=== PATIENT | female | born 1970 | race Caucasian/White ===

== ENCOUNTER 2022-04-07 03:40 | Emergency (ER) | payer MEDICARE, MEDICAID, SELFPAY ==
--- NOTE | ~2022-04-07 | CT_ITS ---
EXAMINATION: CT abdomen pelvis wo con DATE: 04/07/2022 05:06 INDICATION: Lower abdominal pain and cramping, diarrhea for 2 days. Vaginal discharge. TECHNIQUE: Computed tomography (CT) of the abdomen and pelvis was performed without intravenous contr ast. Automated exposure control and iterative reconstruction technique were employed. Exam dose: 885 .79 mGy-cm total exam DLP. COMPARISON: None. FINDINGS: 7 mm irregular left lower lobe opacity (series 4 image 9). CT thorax examination is recomme nded. Normal heart size. No pericardial or pleural effusion. 8 mm lateral segment left hepatic cyst. No other hepatic space-occupying mass lesion is evident. Norm al splenic size. No pancreatic mass lesion, calcification or ductal dilatation is noted. The gallbladder is contracted. No bile duct or pancreatic duct dilatation is noted. Normal morphology of the adrenal glands. No renal mass lesion or urinary tract calculus or hydrourete ronephrosis. Normal caliber of the abdominal aorta. No intraperitoneal or retroperitoneal or pelvic mass lesion or adenopathy or ascites. Normal appendix. No bowel obstruction or intraperitoneal free air. The urinary bladder, uterus and adnexal areas are unremarkable. Small fat-containing umbilical hernia. No suspicious osteolytic or osteoblastic lesions. IMPRESSION: 8 mm left hepatic cyst 7 mm irregular left lower lobe pulmonary opacity, carcinoma the lung is not excluded; CT thorax is re commended. Dr. Ross notified emergency room physician Dr. Roman of the left lower lobe opacity and recommendation for CT thorax on 04/03/2022 at 1045 hours. Reviewed, dictated and finalized at [facility] Reviewed, dictated and finalized at [facility] [employer] [employer] IMPRESSION: 8 mm left hepatic cyst 7 mm irregular left lower lobe pulmonary opacity, carcinoma the lung is not exc luded; CT thorax is recommended. Dr. Ross notified emergency room physician Dr. Roman of the left lower lobe opacity and recommendation for CT thorax on at 1045 hours.
[2022-04-07 03:43] VITALS: BP 140/81; PULSE 77; RESP 18; TEMP 36.6; O2SAT 100
--- NOTE | 2022-04-07 04:08 | ED.GENADULT ---
HPI - General Adult General Chief complaint: Abdominal Pain Stated complaint: low abd cramping Time Seen by Provider: 04/07/22 03:57 Source: RN notes reviewed History of Present Illness HPI narrative: Patient presents emergency department from home for abdominal pain. Patient states symptoms began 2 days ago. States she been having lower abdominal pain described as cramping. States has been associated with approximately 1-2 loose bowel movements a day. She denies any fevers or chills chest pain or shortness of breath denies any nausea or vomiting. Patient does states she has had some small amount of vaginal discharge. She states she is not sexually active and last sexual activity was in December she does request to be tested for an STD Related Data Allergies Allergy/AdvReac Type Severity Reaction Status Date / Time clindamycin Allergy Unknown Rash Verified 04/07/22 04:11 Sulfa (Sulfonamide Allergy Unknown Swelling Verified 04/07/22 04:11 Antibiotics) loratadine [From Claritin] Allergy Unknown Verified 04/07/22 04:11 clarithromycin [From Biaxin] AdvReac Other Verified 04/07/22 04:11 Review of Systems Review of Systems: Gen.: Denies fevers or chills ENT: Denies congestion Respiratory: Denies shortness of breath or cough CV: Denies chest pain or palpitations GI: See HPI denies burning, urgency, frequency or hematuria Musculoskeletal: Denies back pain or muscle pain Neuro: Denies numbness, tingling, weakness or focal weakness Skin: Denies rash Except as documented, all other systems reviewed and negative PMFSH Past Medical History Medical History (Updated 04/07/22 @ 06:32 by Bubba Medrano DO) Patient denies significant medical history Social History Social History (Updated 04/07/22 @ 04:09 by Bubba Medrano DO) Smoking status: Never smoker Exam Narrative: APPEARANCE: No acute distress, nontoxic, resting in bed HEENT: Normocephalic, atraumatic, OMM RESPIRATORY: No respiratory distress, clear to auscultation bilaterally with no rhonchi wheezing or rales CARDIOVASCULAR: RRR s murmur ABDOMINAL: Soft nondistended tender palpation right lower quadrant and left lower quadrant no tenderness right upper quadrant and left upper quadrant no rebound or guarding : Normal external exam, minor amount of white discharge in vaginal canal cervix is closed no adnexal tenderness no cervical motion tenderness MUSCULOSKELETAl: Moves all extremities. No clubbing, cyanosis or edema. NEURO: Awake and alert. Following commands, speech normal, no focal deficits SKIN:: Warm, dry. Normal Color PSYCHIATRIC: Normal affect/mood Course Course Emergency Course: Discussed with patient results of negative trichomonas test discussed Chlamydia gonorrhea will be sent off as the patient is not sexually active we will refrain from treating at this time until results of results are back and we will treat for most likely bacterial vaginosis Patient states that they are feeling much better at this time. States abdominal pain has resolved. Repeat abdominal exam shows the patient's abdomen to be soft and nontender. Discussed with patient results of workup and diagnosis. Discussed need for follow-up with primary care physician, reasons to return to the emergency department in proper use of medication. Patient understands and agrees to current treatment plan Vital Signs Vital signs: Vital Signs Temperature 97.9 F 04/07/22 03:43 Pulse Rate 77 04/07/22 03:43 Respiratory Rate 18 04/07/22 03:43 Blood Pressure 140/81 04/07/22 03:43 Pulse Oximetry 100 04/07/22 03:43 Oxygen Delivery Room Air 04/07/22 03:43 Temperature 97.9 F 04/07/22 03:43 Pulse Rate 77 04/07/22 03:43 Respiratory Rate 18 04/07/22 03:43 Blood Pressure 140/81 04/07/22 03:43 Pulse Oximetry 100 04/07/22 03:43 Oxygen Delivery Room Air 04/07/22 03:43 Medical Decision Making MDM Narrative Medical decision making narrative: Patient's
[2022-04-07 04:16] LABS: Appearance Urine Slightly Cloudy (Clear); Bilirubin Urine 1+ (Negative); Blood Urine 1+ (Negative); Color Urine Yellow (Yellow); Glucose Urine UA Negative (Negative); Ketones Urine Negative (Negative); Leukocyte Esterase Ur Negative LEU/UL (Negative); Nitrate Urine Negative (Negative); Protein Urine 2+ mg/dL (Negative); Specific Grav Ur >= 1.030 (1.001-1.035); Urobilinogen Urine 0.2 mg/dL (<2.0)
[2022-04-07 04:23] LABS: Basophils Absolute Auto 0.1 K/mm3 (0.0-0.1); Basophils Percent Auto 0.6 % (0.2-1.2); Eosinophils Absolute Auto 0.3 K/mm3 (0-0.3); Hemoglobin 12.6 g/dL (12.0-15.0); Immature Granulocyte Absolute 0.01 K/mm3 (0.00-0.031); Immature Granulocyte Percent A 0.1 % (0-0.5); Lymphocytes Absolute Auto 2.51 K/mm3 (0.9-3.2); Lymphocytes Percent Auto 28.2 % (18.3-44.2); Mean Corpuscular HGB Conc 33.2 g/dl (32-36); Mean Corpuscular Hemoglobin 29.3 pg (26-34); Mean Corpuscular Volume 88.4 fl (80-100); Mean Platelet Volume 9.8 fl (7.4-10.4); Monocytes Absolute Auto 0.8 K/mm3 (0.1-0.6); Monocytes Percent Auto 8.5 % (2.6-8.5); Neutrophils Absolute Auto 5.3 K/mm3 (1.3-6.7); Neutrophils Percent Auto 59.6 % (45.5-73.1); Platelet Count Result 269 k/mm3 (150-375); Red Cell Distribution Width 12.6 % (11.5-14.5); White Blood Count 8.9 K/mm3 (4.5-10.0)
--- NOTE | 2022-04-07 04:26 | PC.NURSE ---
Pt stated they do not want an IV and do not want CT scan of their abdomen. Pt stated i'm sorry I guess I wasn't very clear but I think it's just BV and i don't want all that other stuff Pt also refused IV fluids and IV pain medication. Pt refused IV placement.
[2022-04-07 04:27] LABS: Calcium Oxalate Crystals Urine Present /hpf; Mucus Urine Heavy /lpf; WBC Urine 21-30 /hpf
[2022-04-07 04:33] LABS: Alanine Aminotransferase 16 U/L (6-35); Albumin Level 3.9 g/dL (3.5-5.1); Alkaline Phosphatase 83 U/L (38-126); Anion Gap 8 mmol/L (8-16); Aspartate Amino Transferase 29 U/L (14-36); Bilirubin,Total 0.2 mg/dL (0.2-1.3); Blood Urea Nitrogen 16 mg/dL (7-17); Calcium 8.6 mg/dL (8.4-10.2); Carbon Dioxide 25 mmol/L (22-30); Chloride 107 mmol/L (98-107); Estimated CRCL calculation 93 ml/min; Estimated Glomerular Filt Rate > 60; Glucose 111 mg/dL (65-110); Lipase 136 U/L (23-300); Potassium 3.9 mmol/L (3.4-5.0); Sodium 140 mmol/L (137-145)
[2022-04-07 04:51] LABS: Add Urine Microscopic? YES
[2022-04-07] MEDS: metroNIDAZOLE 250 MG TABLET 500 MG PO (06:48)
== END 2022-04-07 06:52 | disposition home or self-care (01) ==
PROVIDERS: Emergency Provider Emergency Medicine
DX: N76.0 Acute vaginitis (principal); R10.32 Left lower quadrant pain; R10.31 Right lower quadrant pain
CPT/HCPCS: 36415; 74176; 80053; 81001; 81025; 83690; 85025; 87070; 87077; 87086; 87186; 87491; 87591; 87808; 99284; A9270